=== PATIENT | female | born 1970 | race Caucasian/White ===

== ENCOUNTER 2023-06-13 14:13 | Emergency (ER) | payer OTHER ==
[~2023-06-13] VITALS: Ht 157.5 cm; Wt 78.0 kg
[2023-06-13 14:19] VITALS: O2SAT 99
[2023-06-13] MEDS ORDERED: ACETAMINOPHEN 325MG TABLET PO ONE (14:45)
[2023-06-13] MEDS ORDERED: CEFAZOLIN 1000MG PREMIX 50 ML IV ONE (17:45)
[2023-06-13] MEDS ORDERED: AMOX1TAB16 MT (17:58)
[2023-06-13] MEDS ORDERED: HYDR-4001 MT (17:59)
[2023-06-13 18:36] VITALS: BP 137/78; PULSE 69; RESP 19; TEMP 98.8
== END 2023-06-13 18:53 | disposition home or self-care (01) ==
LOC: ER 14:13
DX: S02.85XA Fracture of orbit, unspecified, initial encounter for closed fracture (principal); W18.39XA Other fall on same level, initial encounter; Y93.89 Activity, other specified; Y92.89 Other specified places as the place of occurrence of the external cause; Y99.8 Other external cause status
CPT/HCPCS: 71045; 73130; 70486; 96365; 99285; J0690; Z7610

== ENCOUNTER 2024-07-31 16:06 | Emergency (ER) | payer MEDICAID, OTHER ==
[~2024-07-31] VITALS: Ht 157.5 cm; Wt 82.0 kg
[~2024-07-31 16:06] MED LIST: AMOX1TAB16 MT; HYDR-4001 MT
[2024-07-31 16:19] VITALS: O2SAT 98
[2024-07-31 16:57] LABS: BASOPHILS % 0.4 % (0.0-2.0); DIFFERENTIAL COMMENT 0; EOSINOPHILS % 0.5 % (0.0-5.0); HEMATOCRIT. 42.7 % (36.0-48.0); HEMOGLOBIN. 13.8 g/dL (12.0-16.0); LYMPHOCYTES % 22.3 % (20.0-50.0); MEAN CORPUSCULAR HEMOGLOBIN 25.4 pg (28.0-32.0); MEAN CORPUSCULAR HGB CONC 32.3 g/dL (31.0-37.0); MEAN CORPUSCULAR VOLUME 78.7 fL (81.0-99.0); MEAN PLATELET VOLUME 7.9 fl (7.4-10.4); NEUTROPHILS % 68.8 % (40.0-76.0); PLATELET 284 x1000/uL (130-400); RED BLOOD CELL COUNT 5.43 mill/uL (4.2-5.4); WHITE BLOOD COUNT 10.4 x1000/uL (4.5-11.0)
[2024-07-31 17:03] LABS: CHLORIDE 103 mEq/L (98-107); POTASSIUM 3.8 mEq/L (3.5-5.1); SODIUM 138 mEq/L (136-145)
[2024-07-31 17:04] LABS: CARBON DIOXIDE 28 mEq/L (21-32)
[2024-07-31 17:05] LABS: CALCIUM 9.8 mg/dL (8.7-10.4)
[2024-07-31 17:09] LABS: GLUCOSE 239 mg/dL (70-105); UREA NITROGEN BLOOD 15 mg/dL (9-23)
[2024-07-31 17:11] LABS: ALANINE AMINOTRANSFERASE 21 IU/L (10-49); ALBUMIN 4.6 g/dL (3.2-4.8); ASPARTATE AMINOTRANSFERASE 18 IU/L (<34)
[2024-07-31 17:12] LABS: BILIRUBIN TOTAL 0.5 mg/dL (0.1-1.0); PROTEIN TOTAL 8.2 g/dL (6.0-8.3)
[2024-07-31 17:49] VITALS: BP 110/68; PULSE 74; RESP 16; TEMP 36.78072; O2SAT 100
== END 2024-07-31 17:49 | disposition home or self-care (01) ==
LOC: ER 16:06
DX: R51.9 Headache, unspecified (principal); R11.0 Nausea; I10 Essential (primary) hypertension; E11.9 Type 2 diabetes mellitus without complications
CPT/HCPCS: 36415; 80053; 85025; 99283

== ENCOUNTER 2025-06-09 17:57 | Emergency (ER) | payer MEDICAID ==
[~2025-06-09] VITALS: Ht 157.5 cm; Wt 82.0 kg
[2025-06-09 17:58] VITALS: O2SAT 100
[2025-06-09] MEDS ORDERED: ONDANSETRON HCL 4MG/2ML INJ IV ONE (18:30)
[2025-06-09] MEDS ORDERED: MORPHINE SULFATE 4 MG/ML INJ (FOR IV/IM USE) IV ONE (18:30)
[2025-06-09 19:12] LABS: BASOPHILS % 0.6 % (0.0-2.0); EOSINOPHILS % 2.6 % (0.0-5.0); HEMATOCRIT. 39.7 % (36.0-48.0); HEMOGLOBIN. 12.8 g/dL (12.0-16.0); LYMPHOCYTES % 43.7 % (20.0-50.0); MEAN PLATELET VOLUME 8.2 fl (7.4-10.4); MONOCYTES % 6.4 % (2.0-8.0); NEUTROPHILS % 46.7 % (40.0-76.0); PLATELET 267 x1000/uL (130-400); RED BLOOD CELL COUNT 5.13 mill/uL (4.2-5.4); RED CELL DISTRIBUTION WIDTH 15.2 % (11.6-14.6)
[2025-06-09 19:24] LABS: CREATININE 0.7 mg/dL (0.6-1.0)
[2025-06-09 19:25] LABS: UREA NITROGEN BLOOD 15 mg/dL (9-23)
[2025-06-09 19:26] LABS: ASPARTATE AMINOTRANSFERASE 13 IU/L (<34)
[2025-06-09 19:27] LABS: BILIRUBIN DIRECT < 0.1 mg/dL (<=3.0); BILIRUBIN TOTAL 0.2 mg/dL (0.1-1.0); PROTEIN TOTAL 7.4 g/dL (6.0-8.3)
[2025-06-09] MEDS: SODIUM CHLORIDE 0.9% 1,000 ML IV ONE (20:00)
[2025-06-09 20:15] VITALS: BP 129/73; PULSE 76; RESP 16; TEMP 36.9; O2SAT 98
[2025-06-09] MEDS: ONDANSETRON HCL 4MG/2ML INJ IV SCH (20:22)
[2025-06-09] MEDS: MORPHINE SULFATE 4 MG/ML INJ (FOR IV/IM USE) IV SCH (20:23)
[2025-06-09] MEDS ORDERED: TOPUD MT (21:52)
[2025-06-09] MEDS ORDERED: PANT40SU MT (21:52)
[2025-06-09] MEDS ORDERED: MAG-55 MT (21:52)
== END 2025-06-09 22:14 | disposition home or self-care (01) ==
LOC: ER 17:57
DX: K29.70 Gastritis, unspecified, without bleeding (principal); E11.9 Type 2 diabetes mellitus without complications; Z79.899 Other long term (current) drug therapy
CPT/HCPCS: 80076; 80048; 83690; 85025; 36415; 74176; 96361; 96374; 96375; 99285; J2405; J2270; J7030; Z7610 ×4; A4606